=== PATIENT | female | born 1990 | race Two or more races ===

== ENCOUNTER 2023-08-02 12:44 | Emergency (ER) | payer MEDICAID, OTHER ==
[~2023-08-02] VITALS: Ht 165.1 cm; Wt 74.0 kg
[2023-08-02 13:47] LABS: Basophils # (auto) 0 10 ^3/uL (0-0.2); Eosinophils # (auto) 0.1 10 ^3/uL (0-0.8); Lymphocytes # (auto) 2.8 10 ^3/uL (0.4-5.4); Monocytes # (auto) 0.4 10 ^3/uL (0-1.3); Neutrophils # (auto) 5.5 10 ^3/uL (1.6-8.6); Red Cell Distribution Width 13.5 % (11.8-14.3); White Blood Cell 8.8 10^3/uL (4.4-10.8)
[2023-08-02 13:49] LABS: Basophils % (auto) 0.5 % (0.0-2.0); Eosinophils % (auto) 0.8 % (0.0-7.0); Hematocrit 40.6 % (36.0-46.0); Hemoglobin 13.4 g/dL (12.2-16.2); Mean Corpuscular Hemoglobin 26.8 pg (28.0-32.0); Mean Corpuscular Volume 81.4 fL (80.0-100.0); Monocytes % (auto) 4.8 % (0.0-12.0); Neutrophils % (auto) 61.9 % (37.0-80.0); Red Blood Cells 4.99 10^6/uL (4.0-5.20)
[2023-08-02 13:52] LABS: Urine Bacteria FEW /hpf (None Seen); Urine Blood 3+ /uL (Negative); Urine Clarity Clear (Clear); Urine Color Straw (Yellow); Urine Protein, UAD Negative (Negative); Urine Specific Gravity 1.002 (1.001-1.035); Urine Urobilinogen Normal (Negative); Urine WBC <1 /hpf (0 - 5); Urine pH 6.5 (5.0-8.0)
[2023-08-02 17:35] VITALS: BP 122/84; PULSE 73; RESP 18; TEMP 99.1; O2SAT 98
== END 2023-08-02 17:38 | disposition home or self-care (01) ==
LOC: ER 12:44
DX: O03.4 Incomplete spontaneous abortion without complication (principal); R10.2 Pelvic and perineal pain; Z3A.01 Less than 8 weeks gestation of pregnancy
CPT/HCPCS: 36415; 76801; 76817; 81001; 84702; 85025

== ENCOUNTER → 2024-02-25 | Outpatient (CLI) | payer MEDICAID ==
[2024-02-25 10:33] LABS: Basophils # (auto) 0 10 ^3/uL (0-0.2); Basophils % (auto) 0.4 % (0.0-2.0); Eosinophils # (auto) 0.1 10 ^3/uL (0-0.8); Eosinophils % (auto) 1.4 % (0.0-7.0); Hematocrit 35.5 % (36.0-46.0); Lymphocytes # (auto) 1.9 10 ^3/uL (0.4-5.4); Mean Corpuscular Hemoglobin 27.1 pg (28.0-32.0); Mean Corpuscular Hgb Conc. 33.8 g/dL (32.0-36.0); Mean Corpuscular Volume 80.4 fL (80.0-100.0); Monocytes # (auto) 0.3 10 ^3/uL (0-1.3); Monocytes % (auto) 4.6 % (0.0-12.0); Neutrophils # (auto) 4.2 10 ^3/uL (1.6-8.6); Neutrophils % (auto) 64.6 % (37.0-80.0); Nucleated Red Blood Cells % 0.1 %; Platelet Count (auto) 214 10^3/uL (140-450); Red Blood Cells 4.42 10^6/uL (4.0-5.20); Red Cell Distribution Width 13.6 % (11.8-14.3); White Blood Cell 6.5 10^3/uL (4.4-10.8)
[2024-02-25 10:46] LABS: Alanine Aminotransferase 13 U/L (7-40); Albumin 4.4 g/dL (3.2-4.8); Alkaline Phosphatase 50 U/L (46-116); Anion Gap 6 (5-15); Aspartate Aminotransferase 9 U/L (13-40); BUN/Creatinine Ratio 9.5 (10.0-20.0); Blood Urea Nitrogen 6 mg/dL (9-23); Calcium 9.4 mg/dL (8.7-10.4); Carbon Dioxide 26 mmol/L (20-30); Chloride 106 mmol/L (98-107); Glucose 93 mg/dL (74-106); LDL Cholesterol 79 mg/dL (< 100); Sodium 138 mmol/L (136-145); Triglycerides 213 mg/dL (< 150)
[2024-02-25 10:47] LABS: Bilirubin, Total 0.3 mg/dL (0.2-1.0); Cholesterol 152 mg/dL (< 200); HDL Cholesterol 46 mg/dL (40-59); Total Protein 6.8 g/dL (5.7-8.2)
[2024-02-25 10:48] LABS: Thyroid Stimulating Hormone 1.01 uIU/mL (0.55-4.78)
[2024-02-25 11:28] LABS: Amphetamine Screen, Urine Neg (NEGATIVE)
[2024-02-25 11:30] LABS: Barbiturate Scree,Urine Neg (NEGATIVE); Benzodiazephine Screen, Urine Neg (NEGATIVE); Cannabinoid Screen, Urine Neg (NEGATIVE); Cocaine Screen, Urine Neg (NEGATIVE); Opiate Scree,Urine Neg (NEGATIVE); Phencyclidine Screen, Urine Neg (NEGATIVE)
[2024-02-26 12:47] LABS: RPR Non Reactive (Non Reactive); Varicella Zoster IgG Antibody 1367 index (Immune >165)
[2024-02-26 13:07] LABS: Chlamydia Trachomatis, NAA Negative (Negative); Neisseria gonorrhoeae, NAA Negative (Negative)
[2024-02-27 18:06] LABS: QuantiFERON-TB Gold Plus Negative (Negative)
== END | disposition home or self-care (01) ==
LOC: LAB 09:37
PROVIDERS: ATTEND Obstetrics & Gynecology
DX: Z11.3 Encounter for screening for infections with a predominantly sexual mode of transmission (principal); N39.0 Urinary tract infection, site not specified; Z3A.00 Weeks of gestation of pregnancy not specified
CPT/HCPCS: 36415; 80053; 80061; 80307; 83036; 84439; 84443; 84702; 85025; 86592; 86703; 86762; 86787; 86850; 86900; 86901; 87086; 87340

== ENCOUNTER → 2024-06-24 | Outpatient (CLI) | payer MEDICAID ==
[2024-06-24 08:13] LABS: Basophils # (auto) 0 10 ^3/uL (0-0.2); Eosinophils # (auto) 0.1 10 ^3/uL (0-0.8); Neutrophils # (auto) 4.8 10 ^3/uL (1.6-8.6); Nucleated Red Blood Cells % 0.1 %
[2024-06-24 08:14] LABS: Basophils % (auto) 0.3 % (0.0-2.0); Hematocrit 34.4 % (36.0-46.0); Lymphocytes % (auto) 26.7 % (10.0-50.0); Mean Corpuscular Hemoglobin 25.4 pg (28.0-32.0); Mean Corpuscular Volume 79.3 fL (80.0-100.0); Monocytes # (auto) 0.5 10 ^3/uL (0-1.3); Monocytes % (auto) 6.1 % (0.0-12.0); Neutrophils % (auto) 64.9 % (37.0-80.0); Platelet Count (auto) 189 10^3/uL (140-450); Red Blood Cells 4.33 10^6/uL (4.0-5.20); Red Cell Distribution Width 16.3 % (11.8-14.3); White Blood Cell 7.3 10^3/uL (4.4-10.8)
[2024-06-24 09:40] LABS: Alanine Aminotransferase 12 U/L (7-40); Albumin 3.9 g/dL (3.2-4.8); Alkaline Phosphatase 77 U/L (46-116); Anion Gap 7 (5-15); Calcium 9.4 mg/dL (8.7-10.4); Carbon Dioxide 24 mmol/L (20-31); Chloride 107 mmol/L (98-107); Glucose 95 mg/dL (74-106); Sodium 138 mmol/L (136-145)
[2024-06-24 09:41] LABS: Bilirubin, Total 0.3 mg/dL (0.2-1.0); Total Protein 6.4 g/dL (5.7-8.2)
[2024-06-24 09:44] LABS: Aspartate Aminotransferase 11 U/L (13-40); BUN/Creatinine Ratio 8.2 (10.0-20.0); Blood Urea Nitrogen < 5 mg/dL (9-23)
[2024-06-25 06:06] LABS: RPR Non Reactive (Non Reactive)
[2024-06-25 23:06] LABS: Chlamydia Trachomatis, NAA Negative (Negative); Neisseria gonorrhoeae, NAA Negative (Negative)
== END | disposition home or self-care (01) ==
LOC: LAB 07:47
PROVIDERS: ATTEND Obstetrics & Gynecology
DX: Z34.80 Encounter for supervision of other normal pregnancy, unspecified trimester (principal); Z3A.00 Weeks of gestation of pregnancy not specified
CPT/HCPCS: 36415; 80053; 82951; 83036; 85025; 86592; 86850; 86900; 86901

== ENCOUNTER 2024-07-03 18:31 | Observation (INO) | payer MEDICAID ==
[~2024-07-03] VITALS: Ht 165.1 cm; Wt 91.2 kg
--- NOTE | 2024-07-03 20:41 | DVH ---
LIMITED OB ULTRASOUND > 14 WKS: HISTORY: GDMA TECHNIQUE: Multiple real-time grayscale images of the gravid uterus with duplex Doppler color flow an d M-mode spectral analysis. TRANSDUCER: C4-1 COMPARISON: None FINDINGS: IUP single live fetus at 30 weeks, 1 day. heart rate 141 beats per minute JEWEL 14.9 cm Cervix closed Cephalic Presentation Anterior placenta without previa or abruption. IMPRESSION: 1. IUP single live fetus at 30 weeks, 1 day AUA corresponding to an VOLODYMYR of September 10, 2024. 2. No abnormal findings identified.
--- NOTE | 2024-07-03 21:16 | DVHDS2 ---
Physician Discharge Progress N Final Diagnosis: GDMA1 Secondary Diagnosis: Encounter for surveillance Operations or Procedures: Operations or Procedures NST Limited OB US and JEWEL all WNL Condition on Discharge: Stable Disposition: Home Discharge Instructions: Diet: Consistent carbohydrate Activity: No Restrictions, As Tolerated Follow Up/Referral: [facility] at 6:30pm for NST. Medications: Take all prescribed medications as directed. Follow Up Care: Discharge Statement: "Patient was advised to return to the ER or call 911 if any headaches, dizziness, shortness of breath, chest pain, abdominal pain, bleeding, fevers, or worsening of medical condition. Patient was counseled about treatment plan, medications, possible side effects, patientverbalized understanding. All questions were answered to the best of my ability. This discharge took greater then 30 minutes in planning, reviewing documentation, counseling the patient, and discussing with other team members." JIMENA MERCADO DO Jul 03, 2024 21:16
== END 2024-07-03 21:34 | disposition home or self-care (01) ==
LOC: LDRP 18:31
PROVIDERS: ADMIT Obstetrics & Gynecology; ATTEND Obstetrics & Gynecology
DX: O24.419 Gestational diabetes mellitus in pregnancy, unspecified control (principal); Z87.891 Personal history of nicotine dependence; Z3A.30 30 weeks gestation of pregnancy; Z79.899 Other long term (current) drug therapy
CPT/HCPCS: 59025; 76815; 81002; 82948; 82962; 94760; G0378

== ENCOUNTER 2024-07-10 18:16 | Observation (INO) | payer MEDICAID ==
[2024-07-10] MEDS ORDERED: PREN-96 PO (19:03)
--- NOTE | 2024-07-11 03:38 | DVHDS2 ---
Physician Discharge Progress N Final Diagnosis: testing for GDM, A1 Operations or Procedures: Operations or Procedures 34yo IUP@31.1wks, +FM, denies UCs/VB VSS UA wnl BG 88 NST reactive (verified by 2 RNs) FKC/PTL precautions reviewed Condition on Discharge: Stable Disposition: Home Discharge Instructions: Diet: Regular Activity: No Restrictions, As Tolerated Follow Up/Referral: PLEASE KEEP ALL CURRENT APPOINTMENTS WITH DR MERCADO. RETURN TO [facility] [place] 07/17 AT 7PM Medications: CONTINUE TAKING ALL CURRENT MEDICATIONS PREVIOUSLY PRESCRIBED BY DR MERCADO. Follow Up Care: Specialist: f/u in 1 wk Discharge Statement: "Patient was advised to return to the ER or call 911 if any headaches, dizziness, shortness of breath, chest pain, abdominal pain, bleeding, fevers, or worsening of medical condition. Patient was counseled about treatment plan, medications, possible side effects, patientverbalized understanding. All questions were answered to the best of my ability. This discharge took greater then 30 minutes in planning, reviewing documentation, counseling the patient, and discussing with other team members." AIDA BILLS CNM Jul 11, 2024 03:38
== END 2024-07-10 19:19 | disposition home or self-care (01) ==
LOC: LDRP 18:16
PROVIDERS: ADMIT Obstetrics & Gynecology; ATTEND Obstetrics & Gynecology
DX: O24.419 Gestational diabetes mellitus in pregnancy, unspecified control (principal); O60.03 Preterm labor without delivery, third trimester; Z3A.31 31 weeks gestation of pregnancy; Z79.899 Other long term (current) drug therapy
CPT/HCPCS: 59025; 81002; 82948; 82962; G0378

== ENCOUNTER 2024-07-17 18:56 | Observation (INO) | payer MEDICAID ==
[~2024-07-17 18:56] MED LIST: PREN-96 PO
[2024-07-17] MEDS ORDERED: GLYB1.257 PO (19:51)
[2024-07-17] MEDS ORDERED: ASPI325T6 PO (19:52)
--- NOTE | 2024-07-17 20:27 | DVH ---
BIOPHYSICAL PROFILE HISTORY: GDMA1 Comparison Study: None available at time of dictation. TECHNIQUE: Multiple real-time grayscale sonographic images through the gravid uterus of the fetus wi th duplex Doppler color flow and M-mode spectral analysis FINDINGS: BIOPHYSICAL PROFILE: breathing score: 2 movement score: 2 tone score: 2 Quantitative JEWEL score: 2 (JEWEL: 17 Cm.) Total score: 8/8 Heart rate of 137 beats per minute. presentation is cephalic. Placenta is anterior without ev idence of abruption or previa. IMPRESSION: Biophysical profile score: 8/8
--- NOTE | 2024-07-17 23:55 | DVHDS2 ---
Physician Discharge Progress N Final Diagnosis: testing for GDM,A1/AMA Operations or Procedures: Operations or Procedures 34yo IUP@32.1wks, +FM, denies LOF/VB/UCs VSS UA wnl NST reactive (verified by 2 RNs) BPP wnl FKC/PTL precautions reviewed Condition on Discharge: Stable Disposition: Home Discharge Instructions: Diet: Consistent carbohydrate Activity: No Restrictions, As Tolerated Follow Up/Referral: [facility]URN [facility] AT 7PM FOR SCHEDULED NST/BPP Medications: CONTINUE TAKING ALL MEDICATIONS PRESCRIBED AND CHECKING BLOOD SUGAR INDICATED Follow Up Care: Specialist: f/u in 1 wk Discharge Statement: "Patient was advised to return to the ER or call 911 if any headaches, dizziness, shortness of breath, chest pain, abdominal pain, bleeding, fevers, or worsening of medical condition. Patient was counseled about treatment plan, medications, possible side effects, patientverbalized understanding. All questions were answered to the best of my ability. This discharge took greater then 30 minutes in planning, reviewing documentation, counseling the patient, and discussing with other team members." AIDA BILLS CNM Jul 17, 2024 23:55
== END 2024-07-17 20:40 | disposition home or self-care (01) ==
LOC: LDRP 18:56
PROVIDERS: ADMIT Obstetrics & Gynecology; ATTEND Obstetrics & Gynecology
DX: O24.419 Gestational diabetes mellitus in pregnancy, unspecified control (principal); O09.523 Supervision of elderly multigravida, third trimester; Z3A.32 32 weeks gestation of pregnancy; Z79.899 Other long term (current) drug therapy
CPT/HCPCS: 59025; 76818; 81002; 82948; G0378

== ENCOUNTER 2024-07-24 21:16 | Observation (INO) | payer MEDICAID ==
[~2024-07-24 21:16] MED LIST changes: +ASPI325T6 PO; +GLYB1.257 PO
--- NOTE | 2024-07-25 00:29 | DVH ---
ULTRASOUND BIOPHYSICAL PROFILE CLINICAL HISTORY: GDMA1/ AMA COMPARISON: US BIOPHYSICAL PROFILE on DOS: 07/17/24 TECHNIQUE: Real-time grayscale, color flow and M-mode imaging of the gravid uterus is performed. FINDINGS: Single living intrauterine gestation. Vertex positioning. heart rate 150 beats per minute. Lauri centa is anterior. No definite evidence of previa or abruption at this time. Amniotic fluid index: 19.5cm Biophysical profile: 8 out of 8. (2 breathing, 2 activity, 2 tone, 2 JEWEL) IMPRESSION: Biophysical profile scoring 8 out of 8. HS:Y
--- NOTE | 2024-07-25 03:02 | DVHDS2 ---
Physician Discharge Progress N Final Diagnosis: GDMA2 Secondary Diagnosis: Encounter for surveillance Operations or Procedures: Operations or Procedures NST/BPP/JEWEL Accucheck ALL WNL Condition on Discharge: Stable Disposition: Home Discharge Instructions: Diet: Regular Activity: No Restrictions, As Tolerated Follow Up/Referral: As scheduled Medications: N/A Follow Up Care: Discharge Statement: "Patient was advised to return to the ER or call 911 if any headaches, dizz iness, shortness of breath, chest pain, abdominal pain, bleeding, fevers, or worsening of medical condition. Patient was counseled about treatment plan, medications, possible side effects, patientverbalized understanding. All questions were answered to the best of my ability. This discharge took greater then 30 minutes in planning, reviewing documentation, counseling the patient, and discussing with other team members." JIMENA MERCADO DO Jul 25, 2024 03:02
== END 2024-07-24 23:33 | disposition home or self-care (01) ==
LOC: LDRP 21:16
PROVIDERS: ADMIT Obstetrics & Gynecology; ATTEND Obstetrics & Gynecology
DX: O24.419 Gestational diabetes mellitus in pregnancy, unspecified control (principal); O09.513 Supervision of elderly primigravida, third trimester; Z3A.33 33 weeks gestation of pregnancy; Z79.899 Other long term (current) drug therapy
CPT/HCPCS: 59025; 76818; 81002; 94760; G0378

== ENCOUNTER 2024-08-07 18:03 | Observation (INO) | payer MEDICAID ==
--- NOTE | 2024-08-07 20:15 | DVH ---
Procedure: US BIOPHYSICAL PROFILE 08/07/2024 07:39 PM Indication: GDMA1 Comparison: US BIOPHYSICAL PROFILE on DOS: 07/24/24, US BIOPHYSICAL PROFILE on DOS: 07/17/24 Technique: Sonogram of gravid uterus utilizing grayscale and color techniques. FINDINGS: Single living intrauterine gestation. Presentation: Cephalic Placenta: Anterior heart rate: 127 bpm JEWEL: 17.9 cm, DVP: 7.8 cm Maternal cervix: Not visualized Biophysical Profile: breathing score: 2 movement score: 2 tone: 2 Quantitative JEWEL score: 2 Total score: 8/8 IMPRESSION: 1. Single living as above. 2. Biophysical profile score: 8/8.
--- NOTE | 2024-08-07 20:17 | DVHDS2 ---
Physician Discharge Progress N Final Diagnosis: GDMA1 IUP 35 wk Secondary Diagnosis: Encounter for surveillance Operations or Procedures: Operations or Procedures NST/BPP JEWEL all WNL Accucheck, Normal Condition on Discharge: Stable Disposition: Home Discharge Instructions: Diet: Consistent carbohydrate Activity: Light activity Follow Up/Referral: as scheduled Medications: N/A Follow Up Care: Discharge Statement: "Patient was advised to return to the ER or call 911 if any headaches, dizziness, shortness of breath, chest pain, abdominal pain, bleeding, fevers, or worsening of medical condition. Patient was counseled about treatment plan, medications, possible side effects, patientverbalized understanding. All questions were answered to the best of my ability. This discharge took greater then 30 minutes in planning, reviewing documenta tion, counseling the patient, and discussing with other team members." JIMENA MERCADO DO Aug 07, 2024 20:17
== END 2024-08-07 20:54 | disposition home or self-care (01) ==
LOC: LDRP 18:03
PROVIDERS: ADMIT Obstetrics & Gynecology; ATTEND Obstetrics & Gynecology
DX: O24.419 Gestational diabetes mellitus in pregnancy, unspecified control (principal); Z3A.35 35 weeks gestation of pregnancy; Z79.899 Other long term (current) drug therapy
CPT/HCPCS: 59025; 76818; 81002; 82948; 82962; 94760; G0378

== ENCOUNTER 2024-08-13 19:12 | Observation (INO) | payer MEDICAID ==
[~2024-08-13] VITALS: Ht 165.1 cm; Wt 91.6 kg
--- NOTE | 2024-08-13 19:59 | DVH ---
OB ULTRASOUND, LIMITED CLINICAL INDICATION: GDmA1 TECHNIQUE: Multiple grayscale ultrasound and M-mode images were obtained of the pelvis for evaluation of intrauterine . COMPARISON: US BIOPHYSICAL PROFILE on DOS: 08/07/24, US BIOPHYSICAL PROFILE on DOS: 07/24/24, US BIOPHY SICAL PROFILE on DOS: 07/17/24 FINDINGS: Biophysical profile: 02/19 breathin movements: 2 tone: 2 Amniotic fluid: 2 heart rate: 152 beats per minute JEWEL: 15.1 cm position: Cephalic Placenta: Anterior IMPRESSION: Biophysical profile 02/19
--- NOTE | 2024-08-14 12:44 | DVHDS2 ---
Physician Discharge Progress N Final Diagnosis: gdm Operations or Procedures: Operations or Procedures nst,sono Condition on Discharge: Good Disposition: Home Discharge Instructions: Diet: Consistent carbohydrate Activity: No Restrictions, As Tolerated Medications: na Follow Up Care: Specialist: 3d Discharge Statement: "Patient was advised to return to the ER or call 911 if any headaches, dizziness, shortness of breath, chest pain, abdominal pain, bleeding, fevers, or worsening of medical condition. Patient was counseled about treatment plan, medications, possible side effects, patientverbalized understanding. All questions were answered to the best of my ability. This discharge took greater then 30 minutes in planning, reviewing documentation, counseling the patient, and discussing with other team members." MU TAPIA DO Aug 14, 2024 12:44
== END 2024-08-13 20:35 | disposition home or self-care (01) ==
LOC: LDRP 19:12
PROVIDERS: ADMIT Obstetrics & Gynecology; ATTEND Obstetrics & Gynecology
DX: O24.419 Gestational diabetes mellitus in pregnancy, unspecified control (principal); Z3A.36 36 weeks gestation of pregnancy; Z79.899 Other long term (current) drug therapy
CPT/HCPCS: 59025; 76818; 81002; 82948; 82962; 94760; G0378

== ENCOUNTER 2024-08-20 06:54 | Observation (INO) | payer MEDICAID ==
--- NOTE | 2024-08-20 12:15 | DVHDS2 ---
Physician Discharge Progress N Final Diagnosis: gdm Operations or Procedures: Operations or Procedures nst,sono Condition on Discharge: Good Disposition: Home Discharge Instructions: Diet: Consistent carbohydrate Activity: Light activity Medications: na Follow Up Care: Specialist: 3d Discharge Statement: "Patient was advised to return to the ER or call 911 if any headaches, dizziness, shortness of breath, chest pain, abdominal pain, bleeding, fevers, or worsening of medical condition. Patient was counseled about treatment plan, medications, possible side effects, patientverbalized understanding. All questions were answered to the best of my ability. This discharge took greater then 30 minutes in planning, reviewing documentation, counseling the patient, and discussing with other team members." Visit Coding OBGYN Date of Service: Aug 20, 2024 Billing Provider: MU TAPIA DO BATT PACKER Common Visit Codes: [id number] OBS CARE (HIGH) MU TAPIA DO Aug 20, 2024 12:15
--- NOTE | 2024-08-20 12:21 | DVH ---
BIOPHYSICAL PROFILE HISTORY: gdma1 TECHNIQUE: Multiple transabdominal real-time grayscale sonographic images through the gravid uterus of the fetus with duplex Doppler color flow and M-mode spectral analysis FINDINGS: BIOPHYSICAL PROFILE: breathing score: 2 movement score: 2 tone score: 2 Quantitative JEWEL score: 2 (JEWEL: 15.3 Cm.) Total score: 8 The cervix not well visualized. Single live fetus in cephalic presentation. heart rate 138 beats per minute. IMPRESSION: Biophysical profile score: 8
== END 2024-08-20 12:35 | disposition home or self-care (01) ==
LOC: UNDOADMOB 11:00 → LDRP 11:00
PROVIDERS: ADMIT Obstetrics & Gynecology; ATTEND Obstetrics & Gynecology
DX: O24.419 Gestational diabetes mellitus in pregnancy, unspecified control (principal); Z3A.37 37 weeks gestation of pregnancy; Z79.899 Other long term (current) drug therapy
CPT/HCPCS: 59025; 76818; 81002; 82948; 82962; 94760; G0378

== ENCOUNTER 2024-08-27 11:06 | Observation (INO) | payer MEDICAID ==
--- NOTE | 2024-08-27 12:22 | DVH ---
BIOPHYSICAL PROFILE HISTORY: GDMA1 TECHNIQUE: Multiple transabdominal real-time grayscale sonographic images through the gravid uterus of the fetus with duplex Doppler color flow and M-mode spectral analysis FINDINGS: BIOPHYSICAL PROFILE: breathing score: 2 movement score: 2 tone score: 2 Quantitative JEWEL score: 2 (JEWEL: 15.8 Cm.) Total score: 8 The cervix not well visualized. Single live fetus in cephalic presentation. heart rate 142 beats per minute. Anterior placenta without previa or abruption IMPRESSION: Biophysical profile score: 8
--- NOTE | 2024-08-28 05:55 | DVHDS2 ---
Physician Discharge Progress N Final Diagnosis: GDM Operations or Procedures: Operations or Procedures NST,SONO Condition on Discharge: Good Disposition: Home Discharge Instructions: Diet: Consistent carbohydrate Activity: No Restrictions, As Tolerated Medications: NA Follow Up Care: Specialist: 1W Discharge Statement: "Patient was advised to return to the ER or call 911 if any headaches, dizziness, shortness of breath, chest pain, abdominal pain, bleeding, fevers, or worsening of medical condition. Patient was counseled about treatment plan, medications, possible side effects, patientverbalized understanding. All questions were answered to the best of my ability. This discharge took greater then 30 minutes in planning, reviewing documentation, counseling the patient, and discussing with other team members." Visit Coding OBGYN Date of Service: Aug 27, 2024 Billing Provider: MU TAPIA DO ARCH SUPPORT TECHNICIAN Common Visit Codes: [id number] INP/OBS CARE(HIGH), 62168-ZFX/OBS SAME DATE (HIGH) ARCH SUPPORT TECHNICIAN Procedure Codes: 40474-02- NON-STRESS TEST MU TAPIA DO Aug 28, 2024 05:55
== END 2024-08-27 12:56 | disposition home or self-care (01) ==
LOC: LDRP 11:06
PROVIDERS: ADMIT Obstetrics & Gynecology; ATTEND Obstetrics & Gynecology
DX: O24.419 Gestational diabetes mellitus in pregnancy, unspecified control (principal); Z3A.38 38 weeks gestation of pregnancy; Z79.899 Other long term (current) drug therapy
CPT/HCPCS: 59025; 76818; 81002; 94760; G0378

== ENCOUNTER 2024-09-04 07:09 | Observation (INO) | payer MEDICAID ==
--- NOTE | 2024-09-04 10:44 | DVH ---
CLINICAL HISTORY: Gestational diabetes COMPARISON: US BIOPHYSICAL PROFILE on DOS: 08/27/24, US BIOPHYSICAL PROFILE on DOS: 08/20/24, US BIOPHYS ICAL PROFILE on DOS: 08/13/24 TECHNIQUE: biophysical profile was performed. Transabdominal sonographic images of the fetus we re obtained. FINDINGS: The fetus is in cephalic position. heart rate measures 143 BPM. Amniotic fluid index measures 16 cm. The placenta is anterior in position without visualized evidence for previa or abrupt ion. BPP profile is an overall score of 8/8, with 2/2 points for breathing, with at least one episode of breathing over a 30 second duration during a 30 minute observation, 2/2 points for m ovements, with 3 or more discrete body or limb movements, 2/2 points for tone, with one or more episodes of extremity extension with return to flexion, or opening and closing of hand, and 2/ 2 points for amniotic fluid, with at least 1 pocket of amniotic fluid that measures 2 cm in 2 perpend icular planes. IMPRESSION: BPP score of 8/8.
--- NOTE | 2024-09-04 16:15 | DVHDS2 ---
Physician Discharge Progress N Final Diagnosis: GDM 39WKS Operations or Procedures: Operations or Procedures NST,SONO 39WKS Other Interventions Other Interventions PT WANTS INDUCTION TMW NOT TODAY Condition on Discharge: Good Disposition: Home Discharge Instructions: Diet: Consistent carbohydrate Activity: No Restrictions, As Tolerated Medications: NA Follow Up Care: Specialist: 1D Discharge Statement: "Patient was advised to return to the ER or call 911 if any headaches, dizziness, shortness of breath, chest pain, abdominal pain, bleeding, fevers, or worsening of medical condition. Patient was counseled about treatment plan, medications, possible side effects, patientverbalized understanding. All questions were answered to the best of my ability. This discharge took greater then 30 minutes in planning, reviewing documentation, counseling the patient, and discussing with other team members." Visit Coding OBGYN Date of Service: Sep 04, 2024 Billing Provider: MU TAPIA DO PRESS DEPARTMENT MANAGER Common Visit Codes: [id number] INP/OBS CARE(HIGH) PRESS DEPARTMENT MANAGER Procedure Codes: 37589-63- NON-STRESS TEST MU TAPIA DO Sep 04, 2024 16:15
== END 2024-09-04 11:18 | disposition home or self-care (01) ==
LOC: LDRP 09:56
PROVIDERS: ADMIT Obstetrics & Gynecology; ATTEND Obstetrics & Gynecology
DX: O24.419 Gestational diabetes mellitus in pregnancy, unspecified control (principal); Z3A.39 39 weeks gestation of pregnancy; Z79.899 Other long term (current) drug therapy; Z98.890 Other specified postprocedural states
CPT/HCPCS: 59025; 76818; 81002; 82948; 82962; 94760; G0378

== ENCOUNTER 2024-09-05 22:48 | Observation (INO) | payer MEDICAID ==
[~2024-09-05] VITALS: Ht 165.1 cm; Wt 93.9 kg
--- NOTE | 2024-09-06 13:04 | DVHDS2 ---
Discharge Summary Date of Admission Sep 05, 2024 at 22:48 Date of Discharge: Sep 06, 2024 Admitting Diagnosis Rule out labor Wounds: N/a Labs/Diagnostic Data: Laboratory Results Test 09/05/24 23:37 POC Glucose 139 mg/dl (70-106) Brief Hx & Hospital Course: Patient was not found Consults/Reason for consult Rule out labor Operations or Procedures N/a Condition at Discharge: Good Final Diagnosis/Problems List Returned contractions no active labor Discharge Disposition: Home SNF Discharge Will this Physician continue t: No Discharge Instruct/Medications Diet: Consistent carbohydrate Activity: No Restrictions, As Tolerated Activity comment: Labor precautions SROM precautions kick counts Follow Up/Referral: Follow up p.r.n. or as scheduled. Medications: None Discharge Statement: "Patient was advised to return to the ER or call 911 if any headaches, dizziness, shortness of breath, chest pain, abdominal pain, bleeding, fevers, or worsening of medical condition. Patient was counseled about treatment plan, medications, possible side effects, patientverbalized understanding. All questions were answered to the best of my ability. This discharge took greater then 30 minutes in planning, reviewing documentation, counseling the patient, and discussing with other team members." ASSESSMENT ASSESSMENT Assessment Visit Coding OBGYN Date of Service: Sep 05, 2024 Billing Provider: LEA KRUEGER DO ADVERTISING INTERN Common Visit Codes: [id number] INP/OBS CARE(MOD), 68878-NLL/OBS SAME DATE (LOW), 60295-YBB/OBS DISCH DAY <30MIN ADVERTISING INTERN Procedure Codes: 50230-18- NON-STRESS TEST LEA KRUEGER DO Sep 06, 2024 13:04
== END 2024-09-06 00:14 | disposition home or self-care (01) ==
LOC: LDRP 22:48
PROVIDERS: ADMIT Obstetrics & Gynecology; ATTEND Obstetrics & Gynecology
DX: O62.9 Abnormality of forces of labor, unspecified (principal); Z98.890 Other specified postprocedural states; Z79.899 Other long term (current) drug therapy; Z3A.00 Weeks of gestation of pregnancy not specified
CPT/HCPCS: 59025; 81002; 82948; 82962; 94760; G0378

== ENCOUNTER 2024-09-06 03:31 | Inpatient (IN) | payer MEDICAID ==
[~2024-09-06] VITALS: Ht 165.1 cm; Wt 93.9 kg
[2024-09-06] MEDS ORDERED: WITCH HAZEL-GLYCERIN PAD TOP PRN (05:30)
[2024-09-06] MEDS ORDERED: DERMOPLAST 60ML BOTTLE TOP PRN (05:30)
[2024-09-06] MEDS ORDERED: ACETAMINOPHEN 325 MG TAB PO PRN (05:30)
[2024-09-06] MEDS ORDERED: ONDANSETRON ODT 4 MG TAB PO PRN (05:30)
[2024-09-06] MEDS ORDERED: PHISODERM TOP SOLN 240ML BTL TOP PRN (05:30)
--- NOTE | 2024-09-06 06:11 | DVHHP2 ---
OB CC & HPI Date Date of Admission: Sep 06, 2024 Patient Identification: : 3 Para: 2 EDC: Sep 06, 2024 EGA: 39+ wks Chief Complaints: Reason for admission: active labor Other reason for admission: Active labor delivered in wheelchair in the reyes prior to placing an LAD suite by Macarena GOINSsoft sugar cutter Nurse Assessment Rev: Yes OB History OB History Care: Good Care Ultrasounds: Normal mid trimester US (12 3/7 wks US) Obstetrical Complications: Gestational Diabetes (GDM A2) Medical Complications: None Allergies: Coded Allergies: NO KNOWN ALLERGIES (Unverified , 08/02/23) Home Meds Reported Medications Aspirin (Aspirin) 325 Mg Tab, 81 MG PO DAILY PRN for FOR HEADACHE for 30 Days, MG 07/17/24 Glyburide (Glyburide) 1.25 Mg Tab, 1.25 MG PO, TAB 07/17/24 Vit W/ Ferrous Fumara ( One Daily) Daily Tab, 1 TAB PO DAILY, #90 TAB 3 Refills 07/10/24 Current Medications Current Medications Medications (Trade) Dose Ordered Sig/Talya Route PRN Reason Start Time Stop Time Status Last Admin Lactated Ringer's 1,000 ml @ 125 mls/hr Q8H IV 09/06/24 05:30 Witch Elham (Tucks) 1 pad PRN PRN TOP PERINEAL AREA DISCOMFORT 09/06/24 05:30 Sodium Lauryl Sulfate (Phisoderm) 240 ml PRN PRN TOP PERINEAL AREA DISCOMFORT 09/06/24 05:30 Benzocaine (Dermoplast) 1 applic PRN PRN TOP PERINEAL AREA DISCOMFORT 09/06/24 05:30 Ibuprofen (Motrin Tablet) 600 mg Q6HP PRN PO MODERATE PAIN (4-6 PAIN SCALE) 09/06/24 05:30 Acetaminophen (Tylenol Tablet) 650 mg Q4HP PRN PO MILD PAIN (1-3 PAIN SCALE) 09/06/24 05:30 Ondansetron HCl (Zofran Po) 4 mg Q4HPRN PRN PO NAUSEA / VOMITING 09/06/24 05:30 Docusate Sodium (Colace Capsule) 200 mg HS PO 09/06/24 22:00 Family & Social History Family/Social History Blood Type: O+ Rubella: immune RPR/VDRL: Negative GBS Status: Unknown HBsAG: Negative Review of Systems Constitutional: No symptom reported Ears, Nose, & Throat: No symptom reported Eyes: No symptom reported Pulmonary/Respiratory: No symptom reported Cardiovascular: No symptom reported Gastrointestinal: No symptom reported Genitourinary: No symptom reported Musculoskeletal: No symptom reported Skin: No symptom reported Psychiatric: No symptom reported Endocrine: No symptom reported Hemotologic/Lymphatic: No symptom reported OB Admission Exam Physical Exam HEENT: TMs Normal, Fontanelles Normal, Nasal Mucosa Normal, Eyes non-injected, Oropharynx Normal, PERRLA, Moist Membranes, EOMI Heart: Rhythm Normal Lungs: Clear Abdomen: Non tender Extremities: Normal Reflexes: Normal Cervical Dilatation: 10cm Effacement: 100% Station: 0 Membranes: Ruptured Amniotic Fluid: Clear Heart Rate: 140's Accelerations: Accelerations Present Decelerations: No Decelerations Short Term Variability: Present Custodial Variability: Average (6-25) Intensity: Firm OB Plan Plan Admitting Diagnosis: Labor GDM A2 Plan: Expectant Management LEA KRUEGER DO Sep 06, 2024 06:10
--- NOTE | 2024-09-06 06:17 | LDN2 ---
Labor and Delivery Note Date 09/06/24 Age 34 3 Para 2 AB 0 EDC 09/10/2024 EGA 39 + wks Diagnosis Labor Vaginal Delivery: VTX Vacuum Assisted: No Placenta: Spontaneous Sex: Male Weight pnd Apgars 9/9 Nuchal Cord Present: No Nuchal Cord Transected: No Amniotic Fluid: Clear Anesthesia none Episiotomy: No Extension: No Lacerations: Yes (2-0 Chromic repair) Repaired with 2-0 Chromic EBL 300cc Complications none Conditions stable Food Services Director none present Comments/Significant Med Char ALFONZO in [facility] L&D [place] by LEA Asher RN, DO Sep 06, 2024 06:17
[2024-09-06 06:28] LABS: Basophils # (auto) 0 10 ^3/uL (0-0.2); Basophils % (auto) 0.2 % (0.0-2.0); Eosinophils # (auto) 0 10 ^3/uL (0-0.8); Hemoglobin 10.9 g/dL (12.2-16.2); Lymphocytes # (auto) 1.1 10 ^3/uL (0.4-5.4); Mean Corpuscular Hemoglobin 25.6 pg (28.0-32.0); Monocytes # (auto) 0.5 10 ^3/uL (0-1.3)
[2024-09-06 06:30] LABS: Eosinophils % (auto) 0.2 % (0.0-7.0); Hematocrit 33.6 % (36.0-46.0); Lymphocytes % (auto) 8.6 % (10.0-50.0); Mean Corpuscular Hgb Conc. 32.6 g/dL (32.0-36.0); Mean Corpuscular Volume 78.7 fL (80.0-100.0); Monocytes % (auto) 3.7 % (0.0-12.0); Neutrophils # (auto) 11.1 10 ^3/uL (1.6-8.6); Neutrophils % (auto) 87.3 % (37.0-80.0); Platelet Count (auto) 141 10^3/uL (140-450); Red Blood Cells 4.27 10^6/uL (4.0-5.20); Red Cell Distribution Width 17.3 % (11.8-14.3); White Blood Cell 12.7 10^3/uL (4.4-10.8)
[2024-09-06 06:42] LABS: INR 0.93 (0.9-1.15); Prothrombin Time 9.9 sec (9.3-11.8)
[2024-09-06 06:51] LABS: Alanine Aminotransferase 16 U/L (7-40); Albumin 3.7 g/dL (3.2-4.8); Anion Gap 11 (5-15); Aspartate Aminotransferase 19 U/L (13-40); BUN/Creatinine Ratio 9.1 (10.0-20.0); Bilirubin, Total 0.3 mg/dL (0.2-1.0); Calcium 9.4 mg/dL (8.7-10.4); Carbon Dioxide 21 mmol/L (20-31); Chloride 104 mmol/L (98-107); Sodium 136 mmol/L (136-145); Total Protein 5.9 g/dL (5.7-8.2)
[2024-09-06 07:00] LABS: Alkaline Phosphatase 143 U/L (46-116); Blood Urea Nitrogen 5 mg/dL (9-23); Glucose 113 mg/dL (74-106)
[2024-09-06] MEDS: LACT. RINGERS/OXYTOCIN 20UNITS 500 ML IV ONE ×2 (08:07→08:08)
[2024-09-06 10:34] VITALS: BP 109/61; PULSE 86; TEMP 97.4; O2SAT 99
[2024-09-06 15:00] VITALS: BP 116/70; PULSE 91; TEMP 97.9; O2SAT 97
[2024-09-06] MEDS: LACTATED RINGER'S 1,000 ML IV SCH (18:00)
[2024-09-06 19:00] VITALS: BP 112/65; PULSE 89; TEMP 98.7; O2SAT 96
[2024-09-06] MEDS: IBUPROFEN 600 MG TAB PO PRN (20:06)
[2024-09-06] MEDS: DOCUSATE SOD 100 MG CAP PO SCH (22:12)
[2024-09-06 23:00] VITALS: BP 107/63; PULSE 89; TEMP 97.9; O2SAT 97
[2024-09-07 03:00] VITALS: BP 105/64; PULSE 85; TEMP 97.8; O2SAT 98
--- NOTE | 2024-09-07 05:58 | DVHPN2 ---
Chief Complaints Patient reports: Feels better, Other (minimal lochia , ambulating) Nursing reports: No new complaints, No abdominal pain, No chest pain, No dizziness, No cough Objective Vitals Vital Signs Date Time Temp Pulse Resp B/P (MAP) Pulse Ox O2 Delivery O2 Flow Rate FiO2 09/07/24 03:00 97.8 85 105/64 (78) 98 97.8 09/06/24 19:00 Room Air Medications Current Medications Medications (Trade) Dose Ordered Sig/Talya Route PRN Reason Start Time Stop Time Status Last Admin Docusate Sodium (Colace Capsule) 200 mg HS PO 09/06/24 22:00 09/06/24 22:12 General: Normal ENT: Normal Neck: Normal Lungs: Normal Cardiovascular: Normal Abdominal: Normal Musculoskeletal: Normal Extremities: Normal Skin: Normal Neurological: Normal Studies Laboratory Tests 09/06/24 06:00 Test 09/06/24 06:00 Range/Units Serum Glucose 113 H 74-106 mg/dL Ass/Plan Assessment PP Day #1 stable improved Plan see dc summary see tina orders LEA KRUEGER DO Sep 07, 2024 05:58
--- NOTE | 2024-09-07 06:01 | DVHDS2 ---
Discharge Summary Date of Admission Sep 06, 2024 at 03:37 Date of Discharge: Sep 07, 2024 Admitting Diagnosis labor complete on arrival Wounds: none Labs/Diagnostic Data: Laboratory Results Test 09/06/24 06:00 White Blood Count 12.7 10^3/uL (4.4-10.8) Red Blood Count 4.27 10^6/uL (4.0-5.20) Hemoglobin 10.9 g/dL (12.2-16.2) Hematocrit 33.6 % (36.0-46.0) Mean Corpuscular Volume 78.7 fL (80.0-100.0) Mean Corpuscular Hemoglobin 25.6 pg (28.0-32.0) Mean Corpuscular Hemoglobin Concent 32.6 g/dL (32.0-36.0) Red Cell Distribution Width 17.3 % (11.8-14.3) Platelet Count 141 10^3/uL (140-450) Mean Platelet Volume 9.4 fL (6.9-10.8) Neutrophils (%) (Auto) 87.3 % (37.0-80.0) Lymphocytes (%) (Auto) 8.6 % (10.0-50.0) Monocytes (%) (Auto) 3.7 % (0.0-12.0) Eosinophils (%) (Auto) 0.2 % (0.0-7.0) Basophils (%) (Auto) 0.2 % (0.0-2.0) Neutrophils # (Auto) 11.1 10 ^3/uL (1.6-8.6) Lymphocytes # (Auto) 1.1 10 ^3/uL (0.4-5.4) Monocytes # (Auto) 0.5 10 ^3/uL (0-1.3) Eosinophils # (Auto) 0 10 ^3/uL (0-0.8) Basophils # (Auto) 0 10 ^3/uL (0-0.2) Nucleated Red Blood Cells 0.0 % Prothrombin Time 9.9 sec (9.3-11.8) Prothrombin Time INR 0.93 (0.9-1.15) Activated Partial Thromboplast Time 32.0 SEC (24.5-34.5) Sodium Level 136 mmol/L (136-145) Potassium Level 4.0 mmol/L (3.5-5.1) Chloride Level 104 mmol/L (98-107) Carbon Dioxide Level 21 mmol/L (20-31) Anion Gap 11 (5-15) Blood Urea Nitrogen 5 mg/dL (9-23) Creatinine 0.55 mg/dL (0.550-1.02) Glomerular Filtration Rate Calc 123 mL/min (>90) BUN/Creatinine Ratio 9.1 (10.0-20.0) Serum Glucose 113 mg/dL (74-106) Calcium Level 9.4 mg/dL (8.7-10.4) Total Bilirubin 0.3 mg/dL (0.2-1.0) Aspartate Amino Transferase (AST) 19 U/L (13-40) Alanine Aminotransferase (ALT) 16 U/L (7-40) Alkaline Phosphatase 143 U/L (46-116) Total Protein 5.9 g/dL (5.7-8.2) Albumin 3.7 g/dL (3.2-4.8) Hepatitis C Antibody Negative (Negative) Other Laboratory Tests 09/06/24 06:00 Brief Hx & Hospital Course: precipitance of labor Consults/Reason for consult none Operations or Procedures none Condition at Discharge: Good Final Diagnosis/Problems List Discharge Disposition: Home SNF Discharge Will this Physician continue t: No Discharge Instruct/Medications Diet: Regular Activity: Light activity (pelvic rest 8 weeks) Follow Up/Referral: see Dr Reyna or Melony 2 weeks or prn Medications: none Discharge Statement: "Patient was advised to return to the ER or call 911 if any headaches, dizziness, shortness of breath, chest pain, abdominal pain, bleeding, fevers, or worsening of medical condition. Patient was counseled about treatment plan, medications, possible side effects, patientverbalized understanding. All questions were answered to the best of my ability. This discharge took greater then 30 minutes in planning, reviewing documentation, counseling the patient, and discussing with other team members." ASSESSMENT ASSESSMENT Assessment Visit Coding OBGYN Date of Service: Sep 07, 2024 Billing Provider: LEA KRUEGER DO STATISTICIAN APPLIED Common Visit Codes: PROCEDURE ONLY STATISTICIAN APPLIED Procedure Codes: 43386-ELX DELIVERY ONLY LEA KRUEGER DO Sep 07, 2024 06:01
[2024-09-07 06:53] VITALS: BP 118/72; PULSE 77; RESP 17; TEMP 98.8; O2SAT 97
[2024-09-08 10:07] LABS: RPR Non Reactive (Non Reactive)
[2024-09-10 12:07] LABS: Treponema Pallidum Ab LC Non Reactive (Non Reactive)
== END 2024-09-07 11:00 | disposition home or self-care (01) | DRG 560 ==
LOC: LDRP 03:31 → OBSVTOIN 03:37 → NUR 20:03 → LDRP 09-07 01:57
PROVIDERS: ADMIT Obstetrics & Gynecology; ATTEND Obstetrics & Gynecology
PROC: 10E0XZZ Delivery of Products of Conception, External Approach (ICD-10-PCS; principal; 2024-09-06)
PROC: 0HQ9XZZ Repair Perineum Skin, External Approach (ICD-10-PCS; 2024-09-06)
DX: O24.429 Gestational diabetes mellitus in childbirth, unspecified control (principal); Z37.0 Single live birth; O70.0 First degree perineal laceration during delivery; Z3A.39 39 weeks gestation of pregnancy
CPT/HCPCS: 36415; 59409; 80053; 82948; 85025; 85610; 85730; 86592; 86780; 86803; 86850; 86900; 86901; 94760; 96360; 96361; 96372